=== PATIENT | male | born 1965 | race African-American/Black ===

== ENCOUNTER 2017-07-29 06:55 | Observation (INO) | payer SELFPAY ==
[~2017-07-29] VITALS: Ht 180.3 cm; Wt 97.2 kg
[~2017-07-29 06:55] MED LIST: ALKA-SELTZER GO1 TE1 PO; CATAPRES 0.1MG0.1 MG PO; CATAPRES0.3 MG PO; MUCINEX 60600 MG/TA1 PO; NORCO 325 MG-51 TAB PO
[2017-07-29 07:35] LABS: BASO # 0.1 (0.0-0.2); BASO % 0.6 % (0.0-2.0); EOS # 0.1 (0.0-0.7); EOS % 1.3 % (0-4.0); GRAN # 5.4 (1.4-6.5); GRAN % 53.5 % (42.2-75.2); HEMATOCRIT 39.5 % (42.0-52.0); LYMPH # 3.7 (1.2-3.4); LYMPH % 36.7 % (20.0-51.0); MEAN CELL VOLUME 88 fl (80.0-100.0); MEAN CORPUSCULAR HEMOGLOBIN 29 pg (27.0-31.0); MEAN CORPUSCULAR HGB CONC 33 g/dl (33.0-37.0); MEAN PLATELET VOLUME 9.6 fl (7.4-10.4); MONO # 0.8 (0.1-0.6); MONO % 7.5 % (1.7-9.3); PLATELET COUNT 278 K/mm3 (130-400); RED BLOOD COUNT 4.51 M/mm3 (4.20-5.60); REDCELL DISTRIBUTION WIDTH-CV 13.3 % (11.5-14.5)
[2017-07-29 07:40] LABS: INR 1.1 (0.8-3.0); PROTHROMBIN TIME 12.4 SECONDS (9.7-12.8)
[2017-07-29 07:56] LABS: ALANINE AMINOTRANSFERASE 36 U/L (21-72); ALKALINE PHOSPHATASE 141 U/L (50-136); ANION GAP 9 mmol/L (7-16); AST,SGOT 19 U/L (15-37); BILIRUBIN,TOTAL 0.4 mg/dL (0.0-1.0); BLOOD UREA NITROGEN 12 mg/dL (9-20); C-REACTIVE PROTEIN 3.8 mg/dL (0.0-0.9); CALCIUM 9.1 mg/dL (8.4-10.2); CARBON DIOXIDE 23 mmol/L (22-30); CHLORIDE 104 mmol/L (98-107); CREATININE, serum 1.14 mg/dL (0.66-1.25); GLUCOSE 111 mg/dL (74-106); POTASSIUM 3.8 mmol/L (3.4-5.0); SODIUM 136 mmol/L (137-145); TOTAL PROTEIN 7.6 gm/dL (6.4-8.2)
[2017-07-29 08:03] LABS: LIPASE 39 U/L (23-300)
[2017-07-29 08:04] LABS: ALCOHOL(ethanol),MEDICAL < 10 mg/dL; CREATINE KINASE 250 U/L (55-170)
[2017-07-29 08:08] LABS: TRICYCLIC ANTIDEPRESS URINE POSITIVE
[2017-07-29 08:10] LABS: TROPONIN-I < 0.012 ng/mL (0.000-0.034)
[2017-07-29 11:30] VITALS: BP 122/73; PULSE 90; TEMP 98.2
[2017-07-29] MEDS ORDERED: CATAPRES0.3 MG PO (12:06)
[2017-07-29 12:12] LABS: URIC ACID 7.4 mg/dL (3.5-8.5)
[2017-07-29 12:26] LABS: TROPONIN-I 3 HR POST INITIAL < 0.012 ng/mL (0.000-0.034)
[2017-07-29 17:51] VITALS: BP 152/90; PULSE 96; TEMP 98.1
[2017-07-29 21:03] VITALS: BP 144/96; PULSE 96; TEMP 98.3
[2017-07-30 00:58] VITALS: BP 154/89; PULSE 88; TEMP 98.5
[2017-07-30 05:14] VITALS: BP 157/86; PULSE 75; TEMP 98.2
[2017-07-30 06:59] LABS: BASO # 0.1 (0.0-0.2); BASO % 0.7 % (0.0-2.0); EOS # 0.2 (0.0-0.7); EOS % 2.4 % (0-4.0); GRAN # 3.3 (1.4-6.5); HEMATOCRIT 38.7 % (42.0-52.0); HEMOGLOBIN 12.9 g/dl (13.5-18.0); LYMPH # 3.1 (1.2-3.4); MEAN CELL VOLUME 87 fl (80.0-100.0); MEAN CORPUSCULAR HEMOGLOBIN 29 pg (27.0-31.0); MEAN CORPUSCULAR HGB CONC 33 g/dl (33.0-37.0); MEAN PLATELET VOLUME 9.9 fl (7.4-10.4); MONO # 0.5 (0.1-0.6); MONO % 7.5 % (1.7-9.3); PLATELET COUNT 269 K/mm3 (130-400); RED BLOOD COUNT 4.44 M/mm3 (4.20-5.60); REDCELL DISTRIBUTION WIDTH-CV 13.2 % (11.5-14.5)
[2017-07-30 07:23] LABS: CALCIUM 8.8 mg/dL (8.4-10.2); CREATININE, serum 0.96 mg/dL (0.66-1.25)
[2017-07-30] MEDS ORDERED: ZESTRIL 10MG10 MG PO (11:28)
[2017-07-30] MEDS ORDERED: ADVIL200 MG PO (11:29)
== END 2017-07-30 13:36 | disposition home or self-care (01) ==
LOC: COL.ER 06:55 → SURG 10:23
PROVIDERS: Emergency Medicine; Nurse Practitioner Family; Physician Assistant Medical
DX: M79.672 Pain in left foot (principal); M79.671 Pain in right foot; I16.0 Hypertensive urgency; R91.1 Solitary pulmonary nodule; J43.9 Emphysema, unspecified; F17.210 Nicotine dependence, cigarettes, uncomplicated; Z82.49 Family history of ischemic heart disease and other diseases of the circulatory system
CPT/HCPCS: G0378; J2060; J2250; J3010; J7030; Q9967

== ENCOUNTER → 2017-10-26 | Outpatient (CLI) | payer SELFPAY ==
[~2017-10-26] MED LIST changes: +ADVIL200 MG PO; +ZESTRIL 10MG10 MG PO
[2017-10-26 16:45] LABS: ALBUMIN 3.7 gm/dL (3.5-5.0); BILIRUBIN,TOTAL 0.3 mg/dL (0.0-1.0); CALCIUM 9.5 mg/dL (8.4-10.2); CREATININE, serum 0.91 mg/dL (0.66-1.25)
== END ==
LOC: ZCOL.LAB 16:32
DX: Z01.89 Encounter for other specified special examinations (principal)

== ENCOUNTER → 2017-12-27 | Outpatient (CLI) | payer SELFPAY | LOC: SUN.DIA 08:41 | DX: E11.9 Type 2 diabetes mellitus without complications (principal); I10 Essential (primary) hypertension; Z68.30 Body mass index [BMI] 30.0-30.9, adult; Z71.3 Dietary counseling and surveillance; F17.210 Nicotine dependence, cigarettes, uncomplicated | CPT/HCPCS: G0108 ==

== ENCOUNTER → 2018-01-12 | Outpatient (CLI) | payer SELFPAY | LOC: SUN.DIA 10:15 | DX: E11.9 Type 2 diabetes mellitus without complications (principal); I10 Essential (primary) hypertension; F17.210 Nicotine dependence, cigarettes, uncomplicated | CPT/HCPCS: G0108 ==

== ENCOUNTER → 2018-03-08 | Outpatient (CLI) | payer SELFPAY | LOC: SUN.DIA 02-23 11:24 | DX: E11.9 Type 2 diabetes mellitus without complications (principal); I10 Essential (primary) hypertension; F17.210 Nicotine dependence, cigarettes, uncomplicated | CPT/HCPCS: G0108 ==

== ENCOUNTER 2018-07-25 13:06 | Inpatient (IN) | payer OTHER ==
[~2018-07-25] VITALS: Ht 180.3 cm; Wt 95.9 kg
[2018-07-25 13:50] LABS: BASO % 0.3 % (0.0-2.0); EOS # 0.1 (0.0-0.7); EOS % 0.6 % (0-4.0); GRAN # 8.8 (1.4-6.5); GRAN % 65.6 % (42.2-75.2); HEMATOCRIT 47.7 % (42.0-52.0); LYMPH # 3.4 (1.2-3.4); LYMPH % 25.5 % (20.0-51.0); MEAN CELL VOLUME 84 fl (80.0-100.0); MEAN CORPUSCULAR HEMOGLOBIN 28 pg (27.0-31.0); MEAN CORPUSCULAR HGB CONC 34 g/dl (33.0-37.0); MEAN PLATELET VOLUME 9.9 fl (7.4-10.4); MONO % 7.4 % (1.7-9.3); PLATELET COUNT 337 K/mm3 (130-400); RED BLOOD COUNT 5.69 M/mm3 (4.20-5.60); REDCELL DISTRIBUTION WIDTH-CV 13.3 % (11.5-14.5)
[2018-07-25 13:56] LABS: INR 1.1 (0.8-3.0); PROTHROMBIN TIME 12.3 SECONDS (9.7-12.8)
[2018-07-25 13:59] LABS: PARTIAL THROMBOPLASTIN TIME 38.8 SECONDS (26.0-37.0)
[2018-07-25 14:05] LABS: ALANINE AMINOTRANSFERASE 21 U/L (21-72); ALBUMIN 4.6 gm/dL (3.5-5.0); ALKALINE PHOSPHATASE 162 U/L (50-136); ANION GAP 12 mmol/L (7-16); AST,SGOT 32 U/L (15-37); BILIRUBIN,TOTAL 0.8 mg/dL (0.0-1.0); BLOOD UREA NITROGEN 18 mg/dL (9-20); C-REACTIVE PROTEIN 5.7 mg/dL (0.0-0.9); CALCIUM 9.9 mg/dL (8.4-10.2); CARBON DIOXIDE 28 mmol/L (22-30); CHLORIDE 93 mmol/L (98-107); CREATININE, serum 1.25 mg/dL (0.66-1.25); GLUCOSE 214 mg/dL (74-106); POTASSIUM 3.8 mmol/L (3.4-5.0); SODIUM 133 mmol/L (137-145); TOTAL PROTEIN 8.9 gm/dL (6.4-8.2); URIC ACID 9.1 mg/dL (3.5-8.5)
[2018-07-25 14:09] LABS: ERYTHROCYTE SEDIMENTATION RATE 34 mm/hr (0-30)
[2018-07-25 14:10] LABS: ALCOHOL(ethanol),MEDICAL < 10 mg/dL
[2018-07-25 14:26] LABS: TRICYCLIC ANTIDEPRESS URINE POSITIVE
[2018-07-25 15:31] LABS: SYNOVIAL FL. MONONUCLEAR 9.7 % (0-75); SYNOVIAL FLUID RBC 1000 /mm3 (0-0); SYNOVIAL FLUID WBC 51064 /mm3 (200-600)
[2018-07-25 15:38] LABS: SYNOVIAL FLUID APPEARANCE HAZY; SYNOVIAL FLUID COLOR YELLOW
--- NOTE | 2018-07-25 18:00 | NUR ---
Reviewed medications with patient prior to next shift coming on. He reported that he did not take Lisinopril anymore, but that his PCP at [facility] had changed his meds to Amlodipine/HCTZ. He was not aware of the dosage. This was communicated to online marketing coordinator nurse as well as the pharmacy.
[2018-07-25 18:28] VITALS: BP 143/85; PULSE 102; TEMP 97.7
[2018-07-25 20:30] VITALS: BP 122/66; PULSE 98; TEMP 98
[2018-07-26 00:36] VITALS: BP 124/68; PULSE 88; TEMP 98.2
--- NOTE | 2018-07-26 01:00 | NUR ---
THE PT WAS BEDRESTING WITH TV ON INITIAL ROUNDS WERE MADE, VERY UPSET THAT HE WASN'T GIVEN ANYTHING TO EAT ALL DAY, NO SANDWICH BOX IN THE FRIDGE, KITCHEN STAFF BROUGHT HIM ONE, HE C\\O ONE THIN DRY SANDWICH NO CHIPS, STATED THAT HE WANTED "REAL FOOD", THIS NURSE CALLED KITCHEN STAFF WHO WERE GRACIOUS ENOUGH TO PROVIDE THE PT WITH A HOT MEAL. HE WAS CALMER, HAD DIET PEPSI AND WATER, MEDS TAKEN, NO SIGNS OF ETOH WITHDRAWL, STATED THAT HE ONLY DRINKS ON WEEKENDS. ADMITTED TO PARTAKING OF "DRUGS" LAST NIGHT, THEN STATED THAT HE WOKE WITH HIS KNEE BEING 3 TIMES THE NORMAL SIZE. ORTHO PA IN TO SEE THE PT. THE PT WAS MADE NPO. VERBALIZED THAT HIS PAIN IS SIGNIFICANTLY BETTER. AROUSED BRIEFLY AT 0020 FOR HEPARIN, ACCUCHECK WAS DONE THE PT ATE SO LATE. 259, STATED HHE WANTED TO FORGO SMALL INSULIN AND SEE WHERE IT IS IN THE AM. VSS.
[2018-07-26 04:30] VITALS: BP 131/75; PULSE 69; TEMP 97.2
[2018-07-26 05:15] LABS: COLLECTION METHOD CLEAN CATCH
[2018-07-26 05:22] LABS: MUCOUS Present /lpf; PH 6 (5-8); SQUAMOUS EPITHELIAL 0-2 /hpf; URINE APPEARANCE Clear; URINE BACTERIA None Seen /hpf; URINE BILIRUBIN Negative (NEGATIVE); URINE BLOOD Negative (NEGATIVE); URINE COLOR Yellow; URINE GLUCOSE 3+ (NEGATIVE); URINE KETONE Negative (NEGATIVE); URINE LEUKOCYTE ESTERASE Negative (NEGATIVE); URINE NITRATE Negative (NEGATIVE); URINE PROTEIN(semi-quant) Negative (NEGATIVE); URINE WBC 0-2 /hpf
--- NOTE | 2018-07-26 05:48 | NUR ---
BEDRESTING VSS, IV PATENT. REQUESTED AND GIVEN ANOTHER WARMED BLANKET. VOIDED AND UA SENT FOR ANALYSIS. VERBALIZED THAT HE IS GETTING ADEQUATE SLEEP. NPO, SO JUST FEW ICE CHIPS WITH ORAL SWABS ON BED SIDE TABLE.
[2018-07-26 06:53] LABS: BASO % 0.1 % (0.0-2.0); GRAN # 7.1 (1.4-6.5); GRAN % 78.4 % (42.2-75.2); LYMPH # 1.6 (1.2-3.4); LYMPH % 17.1 % (20.0-51.0); MEAN CELL VOLUME 86 fl (80.0-100.0); MEAN CORPUSCULAR HEMOGLOBIN 28 pg (27.0-31.0); MEAN CORPUSCULAR HGB CONC 33 g/dl (33.0-37.0); MEAN PLATELET VOLUME 10.2 fl (7.4-10.4); MONO # 0.3 (0.1-0.6); MONO % 3.7 % (1.7-9.3); PLATELET COUNT 304 K/mm3 (130-400); RED BLOOD COUNT 4.91 M/mm3 (4.20-5.60); REDCELL DISTRIBUTION WIDTH-CV 13.3 % (11.5-14.5)
[2018-07-26 07:06] LABS: HEMOGLOBIN 13.7 g/dl (13.5-18.0)
[2018-07-26 07:08] LABS: CALCIUM 8.8 mg/dL (8.4-10.2); CREATININE, serum 1.25 mg/dL (0.66-1.25); MAGNESIUM 2.2 mg/dL (1.6-2.3); PHOSPHOROUS 3.9 mg/dL (2.5-4.5); POTASSIUM 4.1 mmol/L (3.4-5.0)
[2018-07-26 08:28] VITALS: BP 144/65; PULSE 91; TEMP 97.7
--- NOTE | 2018-07-26 10:12 | NUR ---
DANYA and SW student met with patient to discuss discharge plan. Patient lives in [place] with a friend, Felicia. The patient reports independence with ADLs and no DME. The patient has utilized the [facility] in the past and receives medications at [facility]. He reports no difficulties obtaining his medications. The patient is down as self pay. The patient reports that he has insurance through his employer, [employer], but does not have the info or card. DANYA consulted financial counselor, Cecelia. Cecelia reports that she will contact [employer] and get his information. The patient does not have advance directives but was interested in obtaining the form for DPOA-HC. DANYA provided the form. The patient plans to return home upon discharge. He states he utilizes the [employer] and his bike for regular transport, but may need transportation back home upon discharge. SW to continue to follow.
[2018-07-26 10:31] VITALS: BP 141/67; PULSE 85; TEMP 97.6
--- NOTE | 2018-07-26 11:47 | NUR ---
Initial visit; Vic thanked Assistant Analyst for stopping and offering prayer and encouragement. Vic requested another visit later today. Assistant Analyst will also keep him in her prayers.
--- NOTE | 2018-07-26 15:33 | NUR ---
Follow up; Patient had requested that Medical Lab Specialist return in the afternoon, however she didn't want to interrupt his resting and sleeping soundly, so she left a card to let him know later of her return. Medical Lab Specialist will visit tomorrow.
--- NOTE | 2018-07-26 16:23 | NUR ---
Patient was seen by Ortho this morning. He was then given permission to eat his breakfast followed with being NPO until Dr. Breen saw results of his cultures. See culture results. Patient reporting that pain is controlled with the Naproxen. Will continue to monitor.
[2018-07-26 16:32] VITALS: BP 148/81; PULSE 86; TEMP 98.8
--- NOTE | 2018-07-26 18:11 | NUR ---
Patient resting in bed at this time, call light in reach and eating his supper. Patient decided to not have any ice cream after lunch and blood sugar was back in the one hundreds again. Patient eating a healthy supper. Patient denies pain to the left knee. He has only been receiving the naproxen at this time and has been very effective. Patient has only shown slight frustration when not getting his meals on time, but immediatly relaxes when food arrives. Has been working with therapy multiple times today walking in the hallways. He is able to bend knee with out any pain at this time. Will continue to monitor.
[2018-07-26 20:01] VITALS: BP 126/73; BP 155/89; PULSE 78; PULSE 79; TEMP 98.5
--- NOTE | 2018-07-26 21:15 | NUR ---
HS meds all reviewed and given. Denies pain. Requests to have knee wrapped with tyler bandage and done. Used urinal and spilled some on gown/changed. Alert and oriented. No tremors noted. LLE elevated on pillow. No redness or increased warmth noted to Left knee.
[2018-07-27 00:24] VITALS: BP 142/74; PULSE 71; TEMP 97.8
--- NOTE | 2018-07-27 00:30 | NUR ---
Rests back in bed watching TV. Denies pain. Heparin shot reviewed and given.
--- NOTE | 2018-07-27 02:12 | NUR ---
PATIENT RESTS ON LEFT SIDE WITH EYES CLOSED. RESPIRATIONS WITH EASE.
--- NOTE | 2018-07-27 03:00 | NUR ---
Patient rests quietly in bed. Respirations with ease.
[2018-07-27 04:19] VITALS: BP 152/80; PULSE 64; TEMP 98.7
--- NOTE | 2018-07-27 05:49 | NUR ---
AWAKENED FOR IV ABT. STATES "NOT MUCH SLEEP"
[2018-07-27 06:05] LABS: BASO % 0.2 % (0.0-2.0); EOS % 0.2 % (0-4.0); GRAN # 12.9 (1.4-6.5); GRAN % 76.6 % (42.2-75.2); HEMATOCRIT 38.3 % (42.0-52.0); HEMOGLOBIN 12.8 g/dl (13.5-18.0); LYMPH # 2.6 (1.2-3.4); LYMPH % 15.5 % (20.0-51.0); MEAN CELL VOLUME 85 fl (80.0-100.0); MEAN CORPUSCULAR HEMOGLOBIN 28 pg (27.0-31.0); MEAN CORPUSCULAR HGB CONC 33 g/dl (33.0-37.0); MEAN PLATELET VOLUME 9.8 fl (7.4-10.4); MONO # 1.2 (0.1-0.6); MONO % 6.9 % (1.7-9.3); PLATELET COUNT 302 K/mm3 (130-400); RED BLOOD COUNT 4.53 M/mm3 (4.20-5.60); REDCELL DISTRIBUTION WIDTH-CV 13.3 % (11.5-14.5)
[2018-07-27 06:22] LABS: CALCIUM 8.7 mg/dL (8.4-10.2); CREATININE, serum 1.12 mg/dL (0.66-1.25); POTASSIUM 4.3 mmol/L (3.4-5.0)
--- NOTE | 2018-07-27 07:00 | NUR ---
Report received from MARY Aguilera. PT in bed sleeping with blanket over face, will continue to monitor.
[2018-07-27 07:47] VITALS: BP 165/90; PULSE 69; TEMP 98.1
--- NOTE | 2018-07-27 10:07 | NUR ---
Assessment charted. PT feeling well, denies any pain. CIWA protocol followed, denies anxiety, good appetite and only BP elevated. L knee bandaid CDI. IVF to L a/c, denies needs will continue to monitor.
[2018-07-27 10:11] VITALS: BP 159/91; PULSE 72; TEMP 97.7
[2018-07-27] MEDS ORDERED: NORVASC 5MG5 MG/TAB PO (10:34)
[2018-07-27] MEDS ORDERED: NAPROSYN500 MG PO (10:36)
[2018-07-27] MEDS ORDERED: PREDNISONE20 MG PO (10:38)
[2018-07-27] MEDS ORDERED: GLUCOPHAGE1000 MG PO (10:46)
--- NOTE | 2018-07-27 11:40 | NUR ---
INT discontinued with tip intact. pressure applied x2 minutes. gauze and tape applied. No redness or swelling.
[2018-07-27 11:55] VITALS: BP 146/86; PULSE 77; TEMP 97.4
--- NOTE | 2018-07-27 12:01 | NUR ---
Follow-up visit with Vic prior to his being discharged. Greens Laborer offered prayer and will keep Vic in her prayers.
--- NOTE | 2018-07-27 13:30 | NUR ---
Pt escorted downstairs at this time, ambulated independently. INT d/c'd by student nurse prior to discharge. Taxi provided by hospital, voucher given, pt received discharge packet, [facility], scripts sent to pharmacy. Pt left with all belongings,cab to drive home. Criteria met.
--- NOTE | 2018-07-27 15:17 | NUR ---
DANYA attended clinical rounds. The patient is to discharge today, 07/27, and he was interested in being set up at the [facility]. DANYA contacted the [facility]. Due to the patient having too many no call, no shows in the past, they have dismissed him from their services. The patient then reported he would be agreeable to the [facility] DANYA contacted [facility] and set up an appointment for Wednesday, 08/03, at 1030. DANYA faxed them the patient's records. The patient was agreeable to the appointment and DANYA provided him with [facility]'s registration packet. The patient was also in need of transportation back home and could not afford a taxi. DANYA provided the patient with a taxi voucher for back home. No additional needs at this time.
== END 2018-07-27 13:30 | disposition home or self-care (01) | DRG 554 ==
LOC: COL.ER 13:06 → SURG 16:40
PROVIDERS: Emergency Medicine; Nurse Practitioner Family; Physician Assistant; ADMIT Hospitalist
PROC: 0S9D3ZX Drainage of Left Knee Joint, Percutaneous Approach, Diagnostic (ICD-10-PCS; principal; 2018-07-25)
DX: M10.062 Idiopathic gout, left knee (principal); I10 Essential (primary) hypertension; E11.65 Type 2 diabetes mellitus with hyperglycemia; F14.10 Cocaine abuse, uncomplicated; F12.10 Cannabis abuse, uncomplicated; F15.10 Other stimulant abuse, uncomplicated; F10.10 Alcohol abuse, uncomplicated; F17.210 Nicotine dependence, cigarettes, uncomplicated
CPT/HCPCS: 99222-AI; 99231-AI; 99239; J1170; J1644; J1815; J2060; J2270; J2543; J2920; J3370; J7030; J7040; J7050; J7512

== ENCOUNTER 2018-08-19 14:48 | Inpatient (IN) | payer SELFPAY ==
[~2018-08-19] VITALS: Ht 180.3 cm; Wt 90.9 kg
[~2018-08-19 14:48] MED LIST changes: +GLUCOPHAGE1000 MG PO; +NAPROSYN500 MG PO; +NORVASC 5MG5 MG/TAB PO; +PREDNISONE20 MG PO
[2018-08-19 15:59] LABS: BASO # 0.1 (0.0-0.2); BASO % 0.3 % (0.0-2.0); EOS # 0.1 (0.0-0.7); EOS % 0.4 % (0-4.0); GRAN # 11.3 (1.4-6.5); HEMOGLOBIN 14.2 g/dl (13.5-18.0); LYMPH # 4.4 (1.2-3.4); MEAN CELL VOLUME 85 fl (80.0-100.0); MEAN CORPUSCULAR HEMOGLOBIN 28 pg (27.0-31.0); MEAN CORPUSCULAR HGB CONC 33 g/dl (33.0-37.0); MONO # 1.2 (0.1-0.6); MONO % 6.7 % (1.7-9.3); PLATELET COUNT 341 K/mm3 (130-400); RED BLOOD COUNT 5.07 M/mm3 (4.20-5.60); REDCELL DISTRIBUTION WIDTH-CV 14.5 % (11.5-14.5)
[2018-08-19 16:13] LABS: ALANINE AMINOTRANSFERASE 30 U/L (21-72); ALBUMIN 4.5 gm/dL (3.5-5.0); ALKALINE PHOSPHATASE 127 U/L (50-136); ANION GAP 17 mmol/L (7-16); AST,SGOT 46 U/L (15-37); BILIRUBIN,TOTAL 0.7 mg/dL (0.0-1.0); BLOOD UREA NITROGEN 23 mg/dL (9-20); CALCIUM 10.1 mg/dL (8.4-10.2); CARBON DIOXIDE 19 mmol/L (22-30); CHLORIDE 102 mmol/L (98-107); GLUCOSE 161 mg/dL (74-106); LIPASE 51 U/L (23-300); POTASSIUM 3.9 mmol/L (3.4-5.0); SODIUM 137 mmol/L (137-145); TOTAL PROTEIN 7.9 gm/dL (6.4-8.2)
[2018-08-19 16:23] LABS: C-REACTIVE PROTEIN < 0.5 mg/dL (0.0-0.9)
[2018-08-19 17:48] LABS: COLLECTION METHOD CLEAN CATCH
[2018-08-19 18:01] LABS: MUCOUS Present /lpf; PH 5 (5-8); SQUAMOUS EPITHELIAL None Seen /hpf; URINE APPEARANCE Hazy; URINE BACTERIA None Seen /hpf; URINE BILIRUBIN Negative (NEGATIVE); URINE BLOOD Negative (NEGATIVE); URINE COLOR Yellow; URINE GLUCOSE Negative (NEGATIVE); URINE KETONE 1+ (NEGATIVE); URINE LEUKOCYTE ESTERASE Negative (NEGATIVE); URINE NITRATE Negative (NEGATIVE); URINE PROTEIN(semi-quant) Negative (NEGATIVE); URINE UROBILINOGEN Negative (NEGATIVE)
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
--- NOTE | 2018-08-19 19:50 | NUR ---
Connected patient to Dilaudid BOTTLING ROOM WORKER 0.2mg every 6 minutes on demand, no basal. Patient instructed on usage and does return demonstration. Scrotal support placed on patient with ice pack applied. Answers admission questions. IVF infusing to right AC without redness or swelling. Able to void 200cc of yellow urine at this time.
[2018-08-19 20:00] VITALS: BP 126/78; PULSE 78
[2018-08-19 20:25] VITALS: BP 135/91; PULSE 114; TEMP 97.6
[2018-08-20] VITALS (8 sets, daily range): BP systolic 115–134; BP diastolic 67–82; PULSE 80–100; TEMP 97–98.2
--- NOTE | 2018-08-20 01:00 | NUR ---
Patient setting CO2 monitor off for increased respirations, patient placed on oxygen at 2L/NC for comfort, instructed to slow respirations when pump is alarming, return demonstration effective.
--- NOTE | 2018-08-20 03:04 | NUR ---
Patient has been dozing occasionally. CO2 monitoring continuous. Ice pack replaced often to scrotum, swelling has not increased. Has been able to use the urinal again for 200cc of urine.
--- NOTE | 2018-08-20 06:00 | NUR ---
Patient reports pain is "bearable" and has used only 2mg of the TRENCH TRIMMER FINE Dilaudid. Continues to have ice to scrotum with jock strap in place.
--- NOTE | 2018-08-20 09:21 | NUR ---
Patient resting in bed watching television at this time. Patient is alert and oriented, answers questions appropriately. AMMUNITION ASSEMBLY LABORER and IVF infusing per order. Patient reports that pain is better this morning. Patient denies difficulty urinating, urine is trevor and clear. Patient denies nausea or further needs, call light within reach.
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
--- NOTE | 2018-08-20 11:02 | NUR ---
Visited with the patient and provided spiritual care. Prayed with the patient before leaving the room.
--- NOTE | 2018-08-20 18:19 | NUR ---
Patient rested comfortably during the shift. Patient continues to be able to void well, MEDICAL PHYSICS PROFESSOR keeps pain well controlled. Urine remains clear and trevor, no blood visible. Ice on hematoma. Recieved discharge orders. Completed discharge teaching, emphesized importance of making and keeping follow up appointment with Dr. Liang. Patient recieved prescriptions for antibiotic, pain medication, and a note for work. Paitient recieved a taxi voucher for transportaion home. Patient denies questions or needs, confirms that all personal belongings are with him. Patient and friend escorted to ER entrance.
== END 2018-08-20 17:15 | disposition home or self-care (01) | DRG 730 ==
LOC: COL.ER 14:48 → SURG 17:39
PROVIDERS: Family Medicine; ADMIT Urology
DX: S30.22XA Contusion of scrotum and testes, initial encounter (principal); V19.9XXA Pedal cyclist (driver) (passenger) injured in unspecified traffic accident, initial encounter; I10 Essential (primary) hypertension
CPT/HCPCS: J0690; J1170; J2060; J2405; J7030; Q9967

== ENCOUNTER 2018-12-07 12:34 | Emergency (ER) | payer SELFPAY ==
[~2018-12-07] VITALS: Ht 180.3 cm; Wt 88.6 kg
[2018-12-07 12:43] VITALS: TEMP 97.1
[2018-12-07 14:00] LABS: BASO % 0.4 % (0.0-2.0); EOS # 0.2 (0.0-0.7); EOS % 2.3 % (0-4.0); GRAN # 5.5 (1.4-6.5); GRAN % 56.2 % (42.2-75.2); HEMATOCRIT 47.3 % (42.0-52.0); LYMPH # 3.4 (1.2-3.4); LYMPH % 34.5 % (20.0-51.0); MEAN CELL VOLUME 87 fl (80.0-100.0); MEAN CORPUSCULAR HEMOGLOBIN 28 pg (27.0-31.0); MEAN CORPUSCULAR HGB CONC 32 g/dl (33.0-37.0); MEAN PLATELET VOLUME 10.3 fl (7.4-10.4); MONO # 0.6 (0.1-0.6); MONO % 6.2 % (1.7-9.3); PLATELET COUNT 248 K/mm3 (130-400); RED BLOOD COUNT 5.41 M/mm3 (4.20-5.60); REDCELL DISTRIBUTION WIDTH-CV 14.7 % (11.5-14.5)
[2018-12-07 14:11] LABS: ALANINE AMINOTRANSFERASE 18 U/L (21-72); ALBUMIN 4.2 gm/dL (3.5-5.0); ALKALINE PHOSPHATASE 153 U/L (50-136); ANION GAP 10 mmol/L (7-16); AST,SGOT 23 U/L (15-37); BILIRUBIN,TOTAL 0.4 mg/dL (0.0-1.0); BLOOD UREA NITROGEN 20 mg/dL (9-20); C-REACTIVE PROTEIN 1.2 mg/dL (0.0-0.9); CALCIUM 9.3 mg/dL (8.4-10.2); CARBON DIOXIDE 25 mmol/L (22-30); CHLORIDE 107 mmol/L (98-107); CREATININE, serum 1.26 (0.66-1.25); GLUCOSE 115 mg/dL (74-106); LIPASE 33 U/L (23-300); POTASSIUM 4.6 mmol/L (3.4-5.0); SODIUM 141 mmol/L (137-145); TOTAL PROTEIN 8.1 gm/dL (6.4-8.2)
[2018-12-07 14:20] LABS: TROPONIN-I < 0.012 ng/mL (0.000-0.035)
[2018-12-07 14:56] LABS: COLLECTION METHOD CLEAN CATCH
[2018-12-07 15:29] LABS: PH 6 (5-8); SQUAMOUS EPITHELIAL None Seen /hpf; URINE APPEARANCE Clear; URINE BACTERIA None Seen /hpf; URINE BILIRUBIN Negative (NEGATIVE); URINE BLOOD Negative (NEGATIVE); URINE COLOR Yellow; URINE GLUCOSE Negative (NEGATIVE); URINE KETONE Negative (NEGATIVE); URINE LEUKOCYTE ESTERASE Negative (NEGATIVE); URINE NITRATE Negative (NEGATIVE); URINE PROTEIN(semi-quant) Negative (NEGATIVE); URINE RBC 0-2 /hpf; URINE UROBILINOGEN Negative (NEGATIVE)
[2018-12-07] MEDS ORDERED: NEXIUM 20MG20 MG PO (15:44)
[2018-12-07] MEDS ORDERED: PHENERGAN 25 TA25 MG PO (15:44)
[2018-12-07] MEDS ORDERED: NORVASC 5MG5 MG/TAB PO (16:34)
[2018-12-07] MEDS ORDERED: GLUCOPHAGE500 MG/TAB PO (16:34)
[2018-12-07 16:40] VITALS: BP 149/102; PULSE 85
== END 2018-12-07 16:40 | disposition home or self-care (01) ==
LOC: COL.ER 12:34
PROVIDERS: Family Medicine
DX: R10.13 Epigastric pain (principal); E11.9 Type 2 diabetes mellitus without complications; I10 Essential (primary) hypertension; Z79.84 Long term (current) use of oral hypoglycemic drugs
CPT/HCPCS: C9113; J2405; J7030